=== PATIENT | male | born 2000 | race Caucasian/White ===

== ENCOUNTER 2021-03-05 17:18 | Emergency (ER) | payer OTHER, SELFPAY ==
[2021-03-05 17:31] VITALS: BP 130/77; PULSE 97; RESP 16; TEMP 37.1; O2SAT 100
--- NOTE | 2021-03-05 17:34 | ED.NAVMDI ---
HPI - Nausea/Vomiting/Diarrhea General Chief complaint: Nausea/Vomiting/Diarrhea Stated complaint: fatigue nausea Time Seen by Provider: 03/05/21 17:25 Source: patient and RN notes reviewed History of Present Illness HPI Narrative: Patient is a 20-year-old male who presents the urgent care with complaints of abdominal cramping, nausea, vomiting, diarrhea. Patient states is been ongoing for approximately 1 week and patient states it has improved over the last 2 days. Patient states he vomited once this morning and has been eating and drinking today. Patient states he has not tried a bland diet and does need to use the bathroom after every meal . Patient denies of any fevers. Patient has not taken anything [id number] for his symptoms. Denies of any gilberto history. States that he does have a Covid vaccine and denies any recent exposures. Denies of any upper respiratory complaints. No other acute complaints. No acute distress noted. Patient read the plan of care. Some parts of this dictation were generated by voice recognition software and may contain typographical and/or grammatical inaccuracies. Related Data Allergies Allergy/AdvReac Type Severity Reaction Status Date / Time No Known Allergies Allergy Verified 03/05/21 17:34 Review of Systems Review of Systems: CONSTITUTIONAL: Denies fever, chills, or sweats. EYES: Denies visual changes, redness, or discharge. ENT: Denies rhinorrhea, congestion, sore throat, or otalgia. CARDIOVASCULAR: Denies chest pain, palpitations, or edema. RESPIRATORY: Denies cough or dyspnea. GASTROINTESTINAL: Reports of intermittent abdominal cramping, nausea, vomiting, diarrhea GENITOURINARY: Denies dysuria or hematuria. SKIN: Denies rash or itching. MUSCULOSKELETAL: Denies back pain, joint pain, or myalgia. NEUROLOGIC: Denies headache, numbness, or weakness. All other systems reviewed are negative, except as documented in HPI. PMFSH Comments At the time of my signature, I reviewed and agree with the nursing past medical, surgical, social, and family history. There is no relevant family history pertinent to the patient complaint. Exam Narrative: GENERAL: This is a well-nourished, well-developed patient, in no apparent distress. HEAD: normocephalic, atraumatic. EYES: PERRL. Sclera clear/white. Vision is grossly intact. EARS: External ears normal NOSE: External nose normal with no obvious nasal discharge, nares without redness, no rhinorrhea. THROAT: Mucous membranes moist NECK: Neck supple CARDIOVASCULAR: Regular rate and rhythm without murmurs, gallops, or rubs. RESPIRATORY: Clear to auscultation. Breath sounds equal bilaterally. No wheezes, rales, or rhonchi. GASTROINTESTINAL: Abdomen soft, mild diffuse tenderness, nondistended. Bowel sounds are active. No guarding. SKIN: warm, intact with no suspicious lesions or rash, good texture and turgor. NEURO: awake, alert, and oriented to person, place and time. There were no obvious focal neurologic abnormalities. EXTREMITIES: No clubbing, cyanosis, or edema. Course Vital Signs Vital signs: Vital Signs Temperature 100.2 F H 03/05/21 17:31 Pulse Rate 97 03/05/21 17:31 Respiratory Rate 16 03/05/21 17:31 Blood Pressure 130/77 03/05/21 17:31 Pulse Oximetry 100 03/05/21 17:31 Temperature 100.2 F H 03/05/21 17:31 Pulse Rate 97 03/05/21 17:31 Respiratory Rate 16 03/05/21 17:31 Blood Pressure 130/77 03/05/21 17:31 Pulse Oximetry 100 03/05/21 17:31 Reviewed MDM - Nausea/Vomiting/Diarrhea MDM Narrative Medical decision making narrative: Advised the patient to use the Zofran as needed for nausea and 10 to 15 minutes prior to eating. Increase your water intake and avoid dairy products, greasy/fried foods. May use Pepto-Bismol [id number] for symptom relief. If you develop any increase in symptoms associated with fever, persistent abdominal pain, persistent vomiting/diarrhea?go to the emergency room. Follow-u
== END 2021-03-05 17:50 | disposition home or self-care (01) ==
PROVIDERS: Emergency Provider Nurse Practitioner Family
DX: K52.9 Noninfective gastroenteritis and colitis, unspecified (principal)
CPT/HCPCS: 99213; G0463

== ENCOUNTER 2022-11-22 08:02 | Emergency (ER) | payer OTHER, SELFPAY ==
[2022-11-22 08:10] VITALS: BP 120/75; PULSE 128; RESP 20; TEMP 37.1; O2SAT 98
--- NOTE | 2022-11-22 08:21 | ED.URI ---
HPI - URI/Sore Throat General Chief Complaint: Upper Respiratory Infection Stated Complaint: throat / headache Time Seen by Provider: 11/22/22 08:21 Source: patient, RN notes reviewed and old records reviewed Mode of arrival: ambulatory Limitations: no limitations History of Present Illness HPI Narrative: 22-year-old male who presents to [facility] with complaints of headache and sore throat since yesterday morning and he has had a cough for over a week. Patient reports that he has had strep pharyngitis in the past usually gets it at least once per year. Patient reports that he has been taking DayQuil and NyQuil for his symptoms. Patient reports that he has had the sweats but is unsure if he has had a fever, states emesis X1 yesterday and he has felt some achiness. MD elicited complaint: cough, sore throat and other (headache) Pertinent past history: other (strep throat) Onset (ago): day(s) (day 2 of symptoms.) Able to tolerate fluids by mouth: Yes Treatments prior to arrival: other (DayQuil and NyQuil) Related Data Allergies Allergy/AdvReac Type Severity Reaction Status Date / Time No Known Allergies Allergy Verified 11/22/22 08:15 Review of Systems Review of Systems: CONSTITUTIONAL: Reports malaise, chills, sweats, unknown fever. EYES: Denies visual changes, redness, or discharge. ENT: Reports rhinorrhea, congestion, no sinus pain, no otalgia ,positive for sore throat. CARDIOVASCULAR: Denies chest pain, palpitations, or edema. RESPIRATORY: Reports cough.? Denies dyspnea. GASTROINTESTINAL: Denies abdominal pain, nausea, vomiting, diarrhea SKIN: Denies rash or itching. MUSCULOSKELETAL: some myalgia. NEUROLOGIC: reports headache. All systems reviewed & are unremarkable except as noted in HPI and below PMFSH Past Medical History Medical History (Updated 11/22/22 @ 08:44 by Maria Luisa Casillas NP) Strep throat Social History Social History (Updated 11/22/22 @ 08:36 by Maria Luisa Casillas NP) Smoking status: Never smoker Alcohol intake: current Alcohol use details: social Substance use type: does not use Living arrangements: with family Occupation/Education: student Gender identity (if verbalized by the patient): Male Comments At time of signature, agree with nursing past medical, surgical, social and family history. There is no relevant family history pertinent to the presenting complaint Exam Narrative: GENERAL: Well-appearing, well-nourished, and in no acute distress. HEAD: Normocephalic EYES: PERRLA, conjunctivae clear ENT: Nares clear, turbinates edematous and erythematous, clear discharge. Mucous membranes moist. TM pearly sherman with dull light reflex bilaterally; no tragal tenderness. Oropharynx erythematous without lesions. Tonsils red enlarged and without exudate, no drooling, no hoarseness, no trismus, uvula midline, some post nasal drainage. NECK: Supple. lymphadenopathy CHEST: Clear to auscultation, breath sounds equal. No wheezing, rhonchi, rales, or stridor. No respiratory distress, speaks in full sentences.cough noted SAO2 98% on room air HEART: Regular rate and rhythm. No murmur heard. SKIN: Warm, dry, no rash. NEURO: Alert and oriented x3. PSYCH: Normal mood and affect Course Course Emergency Course: Patient is aware of diagnosis, understands and agrees to treatment plan.? Anticipatory guidance given.? Patient agrees to follow-up as directed and is aware of reasons to seek care at the emergency department. Portions of this record may have been created with voice recognition software Level of Care: Express Care Visit Vital Signs Vital signs: Vital Signs Temperature 37.1 C 11/22/22 08:10 Pulse Rate 128 H 11/22/22 08:10 Respiratory Rate 20 11/22/22 08:10 Blood Pressure 120/75 11/22/22 08:10 Pulse Oximetry 98 11/22/22 08:10 Oxygen Delivery Room Air 11/22/22 08:10 Temperature 37.1 C 11/22/22 08:10 Pulse Rate 128
== END 2022-11-22 08:55 | disposition home or self-care (01) ==
PROVIDERS: Emergency Provider Registered Nurse
DX: J01.90 Acute sinusitis, unspecified (principal); Z20.822 Contact with and (suspected) exposure to COVID-19
CPT/HCPCS: 87081; 87426; 87880; 99213; C9803; G0463

== ENCOUNTER 2022-11-24 08:44 | Emergency (ER) | payer OTHER, SELFPAY ==
[2022-11-24 08:48] VITALS: BP 129/83; PULSE 96; RESP 16; TEMP 36.9; O2SAT 100
--- NOTE | 2022-11-24 09:07 | ED.URI ---
HPI - URI/Sore Throat General Chief Complaint: Upper Respiratory Infection Stated Complaint: Sore Throat Source: patient and RN notes reviewed History of Present Illness HPI Narrative: 22-year-old male presents to urgent care with complaints of a continued sore throat. Patient states this started on Monday. Patient was seen here on Monday this week and tested negative for strep and COVID at that time. Patient was placed on amoxicillin at that time. Patient reports having hot flashes. Denies any vomiting, diarrhea, chest pain, shortness of breath, ear pain, or the complaint. Patient states ibuprofen and Tylenol do not work for him so he hasn't taken any OTC meds for his symptoms. Patient states he also noted some bloody nasal drainage earlier. Related Data Allergies Allergy/AdvReac Type Severity Reaction Status Date / Time pantoprazole Allergy Hives Verified 11/24/22 09:05 Review of Systems Review of Systems: Pertinent positives and pertinent negatives per HPI. [facility] Past Medical History Medical History (Updated 11/24/22 @ 09:09 by Floresita Stevenson, GATO) Strep throat Social History Social History (Updated 11/22/22 @ 08:36 by Maria Luisa Casillas NP) Smoking status: Never smoker Alcohol intake: current Alcohol use details: social Substance use type: does not use Living arrangements: with family Occupation/Education: student Gender identity (if verbalized by the patient): Male Comments At the time of my signature, I reviewed and agree with the nursing past medical, surgical, social, and family history. There is no relevant family history pertinent to the patient complaint. Exam Narrative: GENERAL: This is a well-nourished, well-developed patient, in no apparent distress. HEAD: normocephalic, atraumatic. EYES: Sclera clear/white. Vision is grossly intact. EARS: External ears normal, auditory canals clear and without drainage, TMs normal without perforation. Hearing grossly intact. NOSE: External nose normal with no obvious nasal discharge, nares without redness, no rhinorrhea. THROAT: Mucous membranes moist, posterior pharynx erythemic. Bilateral tonsils 2+. No abscess is noted. No exudate. NECK: Neck supple, non-tender without lymphadenopathy, masses or thyromegaly. CARDIOVASCULAR: Regular rate and rhythm without murmurs, gallops, or rubs. RESPIRATORY: Clear to auscultation. Breath sounds equal bilaterally. No wheezes, rales, or rhonchi.GASTROINTESTINAL: Abdomen soft, non-tender, nondistended. Bowel sounds are active. No hepato-splenomegaly, or palpable masses. No guarding. SKIN: warm, intact with no suspicious lesions or rash, good texture and turgor. NEURO: awake, alert, and oriented to person, place and time. There were no obvious focal neurologic abnormalities. Course Course Level of Care: Express Care Visit Vital Signs Vital signs: Vital Signs Temperature 98.4 F 11/24/22 08:48 Pulse Rate 96 11/24/22 08:48 Respiratory Rate 16 11/24/22 08:48 Blood Pressure 129/83 11/24/22 08:48 Pulse Oximetry 100 11/24/22 08:48 Oxygen Delivery Room Air 11/24/22 08:48 Temperature 98.4 F 11/24/22 08:48 Pulse Rate 96 11/24/22 08:48 Respiratory Rate 16 11/24/22 08:48 Blood Pressure 129/83 11/24/22 08:48 Pulse Oximetry 100 11/24/22 08:48 Oxygen Delivery Room Air 11/24/22 08:48 reviewed. MDM - URI/Sore Throat MDM Narrative Medical decision making narrative: Viral illness may last between 7-21 days; antibiotics do not cure viral illness and are NOT recommended at this time. Also, recommend symptomatic treatment includes: rest, fluids, and increase humidity of the air at home. Recommend Acetaminophen as directed on the bottle to reduce fever, pain, headache. Please schedule a follow-up visit with your personal physician for further evaluation and treatment within 3-5days. If your symptoms persist, change or worsen significantly before you can contact your person
== END 2022-11-24 09:12 | disposition home or self-care (01) ==
PROVIDERS: Emergency Provider Nurse Practitioner Family
DX: J02.9 Acute pharyngitis, unspecified (principal)
CPT/HCPCS: 99211; 99213; G0463

== ENCOUNTER 2025-02-06 01:39 | Day surgery (SDC) | payer BC, SELFPAY ==
[2025-01-22 11:00] VITALS: BMI 31.6
--- OUTSIDE RECORDS SUMMARY | 2025-02-06 02:15 | XMS_ITS | Clinical Summary ---
Author Organization [facility] Address [address], [address] [address] Phone Care Team Providers Care Electrician Chief Name Role Phone Don Vasquez PRODUCTION OPERATIONS MANAGER, [employer] DEPARTMENT SUPERVISOR Primary Care Pr ovider Tammie Keating APRN, DATA TYPIST Unavailable [phone]- [phone] Royal Zayas MD Unavailable [phone] Dayana Zurita APRN, [employer] DEPARTMENT SUPERVISOR Unavailable Allergies Active Allergy Reactions Criticality Noted Date Comments Pantoprazole Rash,Other (see Comments) High 03/23/19 22 Sore throat Medications dicyclomine (BENTYL) 10 MG CapsuleIndicatio ns:Chronic abdominal pain Take 1 Capsule by mouth 3 times daily. 90 Capsule 3 Active famotidine (PEPCID) 40 MG TabletIndication s:Gastroesophage al reflux disease, unspecified whether esophagitis present Take 1 Tablet by mouth 2 times daily. 60 Tablet 2 3 Active ondansetron (ZOFRAN) 4 MG Tablet Take 1 Tablet by mouth every 8 hours as needed for Nausea - 2nd line. 15 Tablet 3 Active SUMAtriptan (IMITREX) 100 MG TabletIndication s:Chronic migraine without aura without status migrainosus, not intractable Take 1 Tablet by mouth daily as needed for Migraine. Use as directed. May repeat dose in 2 hours if headache recurs. 9 Tablet 3 5 Active Active Problems Problem Noted Date Diagnosed Date Pure hypercholesterolemia 08/02/2024 Migraine 12/09/2022 Chronic abdominal pain 12/09/2022 MDD (major depressive disorder) 06/29/2021 Eczema 10/07/2020 Encounters Date Type Department Care Team Description 11/25/2024 MyChart RX Renewal [facility] [place] [address] [place] [address] Don Vasquez, PRODUCTION OPERATIONS MANAGER, [employer] M[employer] DEPARTMENT SUPERVISOR Medication Renewal Declined from Last 3 Months Immunizations Immunization Administration Dates Next Due Covid-19, Mrna, Lnp-s, Pf, 3 0 Mcg/0.3 Ml Dose ([employer]) 09/23/2020,09/02/2020 DTAP VACCINE 10/13/2006, 3,04/22/2002,02/19,2001 HEP B/HIB Combined Vaccine 10/16/2002,02/19/2002 ,2001 Hepatitis A Vaccine, Pediatric/adolescent, 2 Dose Schedule 10/25/2016,10/23/2013 Human Papillomavirus (HPV) 9 -valent Vaccine 10/25/2016 Human Papillomavirus Vaccine (HPV), quadrivalent 10/23/2013 Inactivated Polio Vaccine 10/13/2006,05/2002,02/19/2002,12/11 Influenza Vaccine,unspecifie d Formulation 12/17/2002 MMR Vaccine 10/16/2002 MMRV 10/13/2006 Meningococcal Group B OMV 10/17/2019 Meningococcal MCV4O 05/26/2018 Meningococcal Vaccine 10/23/2013 Pneumococcal PCV, Unspecifie d Formulation 10/16/2002,04/22/2002,02/19/2002,12/11 TDAP Vaccine 10/23/2013 Varicella Vaccine Live 10/16/2002 Family History Medical History Relation Name Comments Cancer Maternal Grandfather Wallace Colon c ancer Diabetes Mother Madhavi Migraines Mother Madhavi Relation Name Status Comments Maternal Grandfather Wallace Mother Madhavi Alive Social History Tobacco Use Types Packs/Day Years Used Date Smoking Tobacco: Never Smokeless Tobacco: Never Tobacco Cessation:Counseling Given: No Alcohol Use Standard Drinks/Week Comments Not Currently 3 (1 standard drink = 0.6 oz pur e alcohol) [facility] Utilities Answer Date Recorded In the past 12 months has th e electric, gas, oil, or water company threatened to shut off services in your home? No 07/30/2024 Social Connection and Isolation Panel Answer Date Recorded In a typical week, how many times do you talk on the phone with family, friends, or neighbors? Never 07/30/2024 How often do you get together with friends or re latives? Never 07/30/2024 How often do you attend roman catholic or evangelical serv ices? Never 07/30/2024 Do you belong to any clubs o r organizations such as roman catholic groups, unions, fraternal or athletic groups, or school groups? No 07/30/2024 How often do you attend meet ings of the clubs or organizations you belong to? Never 07/30/2024 Are you , , di vorced, , never , or living with a partner? Never 07/30/2024 AUDIT-C Answer Date Recorded Q1: How often do you have a drink containing alcohol? Never 07/30/2024 Q2: How many drinks containi ng alcohol do you have on a typical day when you are drinking? Patient does not drink Q3: How often do you have si x or more drinks on one occasion? Never 07/30/2024 Overall Financial Resource Strain (CARDIA) Answe r Date Recorded How hard is it for you to pa y for the very basics like food, housing, medical care, and heating? Not hard at all 07/30/2024 PHQ-2 Answer Date Recorded Total Score - Questions 1-9 0 07/18 [facility] - Occupational Stress Questionnaire Answer Date Recorded Do you feel stress - tense, restless, nervous, or anxious, or unable to sleep at night because your mind is troubled all the time - these days? Not at all 07/30/2024 Exercise Vital Sign Answer Date Recorde d On average, how many days pe r week do you engage in moderate to strenuous exercise (like a brisk walk)? 4 days 07/30/2024 On average, how many minutes do you engage in exercise at this level? 40 min 07/30/2024 Hunger Vital Sign Answer Date Recorded Within the past 12 months, y ou worried that your food would run out before you got the money to buy more. Never true 07/31/19 25 Within the past 12 months, t he food you bought just didn't last and you didn't have money to get more. Never true 07/30/2024 PRAPARE - Transportation Answer Date Re corded In the past 12 months, has l ack of transportation kept you from medical appointments or from getting medications? No 07/18 In the past 12 months, has l ack of transportation kept you from meetings, work, or from getting things needed for daily living? No 07/30/2024 Housing Stability Vital Sign Answer Asif e Recorded In the last 12 months, was t here a time when you were not able to pay the mortgage or rent on time? Patient declined 06/14/19 24 In the last 12 months, how many places have you lived? 1 06/14/2023 In the last 12 months, was t here a time when you did not have a steady place to sleep or slept in a retirement (including now)? No 06/14/2023 Housing Stability Vital Sign Answer Asif e Recorded In the last 12 months, was t here a time when you were not able to pay the mortgage or rent on time? No 07/30/2024 Number of Times Moved in the Last Year Not on fi le 07/30/2024 At any time in the past 12 m [facility], were you homeless or living in a retirement (including now)? No 07/30/2024 Education Answer Date Recorded What is the highest level of school you have completed or the highest degree you have received? 12th grade 10/31/2022 Sexually Active Control Partners Comments Yes Male Condom Female Sex and Gender Information Value Date Recorded Sex Assigned at Not on file Legal Sex Male 9:31 PM CDT Gender Identity Not on file Sexual Orientation Not on file Last Filed Vital Signs Vital Sign Reading Time Taken Comments Blood Pressure 130/72 07/30/2024 8:27 AM CDT Pulse 75 07/30/2024 8:27 AM CDT Temperature 36.4 C (97.6 F) 07/30/2024 8:27 AM CDT Respiratory Rate 16 07/30/2024 8:27 AM CDT Oxygen Saturation 98% 07/30/2024 8:27 AM CDT Inhaled Oxygen Concentration - - Weight 101.2 kg (223 lb) 07/30/2024 8:27 AM CDT Height 177.8 cm (5' 10) 07/30/2024 8:27 AM CDT Body Mass Index 32 07/30/2024 8:27 AM CDT Plan of Treatment Health Maintenance Due Date Last Done Comments Hepatitis C Virus (HCV) Screening 2001 Meningococcal B Immunization (2 of 2 - Bexsero SCDM 2-dose series) 04/18/2020 10/17/2019 DTaP/Tdap/Td Immunization (7 - Td or Tdap) 10/24/2023 10/23/2013, 10/13/2006, 10/16/2002, Additional history exists Influenza Immunization (#1) 2024 12/17/2002 SARS-COV-2 Immunization (3 - season) 2024 09/23/2020, 09/02/2020 Respiratory Syncytial Virus (RSV) Immunization (Adult) (1 - 1-dose 75+ series) 2076 Hepatitis B Immunization Completed 003, 02/19/2002, 2001 Pneumococcal Immunization Combined Aged Out 10/16/2002, 04/22/2002, 02/19/2002, Additional history exists No longer eligible based on patient's age to complete this topic Measles Mumps Rubella (MMR) Immunization Discontinued 10/13/2006, 10/16/2002 Polio (IPV) Immunization Discontinued 007, 04/22/2002, 02/19/2002, Additional history exists Varicella Immunization Completed 10/13/2006, 2002 Hepatitis A Immunization Discontinued 10/25/2016, 08/2013 Human Papillomavirus (HPV) Immunization Completed 10/25/2016, 10/23/2013 Meningococcal Immunization (ACWY) Completed 05/26/2018, 10/23/2013 Rotavirus Immunization Aged Out No lo nger eligible based on patient's age to complete this topic Insurance MEDICAID [place] [facility] Care Teams Electrician Chief Relationship Specialty Start Date End Date Don Vasquez APRN, WALL MIRROR DEPARTMENT SUPERVISOR [address] [address] PCP - General Advanced Practice Nurse 10/07/20 Tammie Keating APRN, DATA TYPIST [address] [place] [address] Nurse Practitioner Advanced Practice Nurse 04/21/23 Royal Zayas MD [address] [place] [id number] Consulting Physician Neurology 09/12/22 Dayana Zurita APRN, [employer]IR[employer] DEPARTMENT SUPERVISOR [address] [place] [address] Nurse Practitioner Advanced Practice Nurse 08/08/22
[2025-02-06 09:34] VITALS: BP 119/76; PULSE 114; RESP 18; TEMP 36.2; O2SAT 100
[2025-02-06] MEDS: LACTATED RINGERS 1,000 ML 150 ML IV CONT (09:43)
--- NOTE | 2025-02-06 09:54 | WPDANESEPPF ---
Anes - Initial Pre Proc Eval Procedure: Operation Date: 02/06/25 11:00 Proposed Procedures p Diagnostic Colonoscopy - Felice Ricketts MD Date/Time: 02/06/25 09:54 Surgeon: Felice Ricketts MD Pre Op Diagnosis: Unspecified abdominal pain Patient Data Age: 24 Gender: M Height: 1.78 m Weight: 100.7 kg Last Vital Signs Temp 36.2 C L 02/06/25 09:34 Pulse 114 H 02/06/25 09:34 Resp 18 02/06/25 09:34 BP 119/76 02/06/25 09:34 Pulse Ox 100 02/06/25 09:34 O2 Del Method Room Air 02/06/25 09:34 Allergies Allergy/AdvReac Type Severity Reaction Status Date / Time pantoprazole Allergy Hives Verified 02/06/25 09:33 Home Medications ?Medication ?Instructions ?Recorded ?Confirmed ?Type famotidine 20 mg tablet 20 mg PO DAILY 11/24/22 02/06/25 History rizatriptan 10 mg tablet 10 mg PO PRN Headaches 11/24/22 01/22/25 History topiramate 100 mg tablet 100 mg PO DAILY 11/24/22 01/22/25 History amitriptyline 25 mg tablet 50 mg (2 x 25 mg) PO QHS 1 month 01/01/25 02/06/25 Rx #60 tabs Patient hx anesthesia problems: none Family hx anesthesia problems: none Results Review: All pre-operative results and documents have been reviewed as part of the pre-operative evaluation. [facility] Past Medical History Medical History Abdominal pain Family history of Crohn's disease Family history of ulcerative colitis GERD (gastroesophageal reflux disease) Diarrhea Chronic bilateral lower abdominal pain Strep throat Social History Social History Smoking status: Never smoker Alcohol intake: current Alcohol use details: social Substance use type: does not use Living arrangements: with family Occupation/Education: student Gender identity (if verbalized by the patient): Male Spiritual care concerns: No Anes - Eval Final PreProcedure Day of Procedure 02/06/25 09:54 Patient weight: obese Heart: regular rate and rhythm Lungs: clear to auscultation Airway: Mallampati scale class II Neurological: alert and oriented Last oral intake: >/= 8 hours ASA classification: II Emergent: no Anesthetic plan: proceed Anesthesia type and monitoring: general GIVS and standard monitoring Results Review: All pre-operative results and documents have been reviewed as part of the pre-operative evaluation. Informed Consent: The patient's anesthetic plan and its attendant risks and benefits were discussed with the patient/family/POA. Questions were solicited and answers provided to the satisfaction of the patient/family/POA.
--- NOTE | 2025-02-06 09:55 | PM.HPGS ---
History of Present Illness History of Present Illness Consent: Risks, benefits, and alternatives have been discussed and questions answered. Patient agrees to proceed with procedure. Chief complaint: Unspecified abdominal pain Narrative: Adrian Hudson is a 24 year old male here for first colonoscopy, h/o intermittent abdominal pain with diarrhea, improved with elavil Review of Systems Review of Systems: All systems reviewed & are unremarkable except as noted in HPI and below PMFSH Past Medical History Medical History (Updated 02/06/25 @ 09:56 by Felice Ricketts MD) IBS (irritable bowel syndrome) Abdominal pain Family history of Crohn's disease Family history of ulcerative colitis GERD (gastroesophageal reflux disease) Diarrhea Chronic bilateral lower abdominal pain Strep throat Social History Social History Smoking status: Never smoker Alcohol intake: current Alcohol use details: social Substance use type: does not use Living arrangements: with family Occupation/Education: student Gender identity (if verbalized by the patient): Male Spiritual care concerns: No Meds Home Medications and Allergies Home Medications ?Medication ?Instructions ?Recorded ?Confirmed ?Type famotidine 20 mg tablet 20 mg PO DAILY 11/24/22 02/06/25 History rizatriptan 10 mg tablet 10 mg PO PRN Headaches 11/24/22 01/22/25 History topiramate 100 mg tablet 100 mg PO DAILY 11/24/22 01/22/25 History amitriptyline 25 mg tablet 50 mg (2 x 25 mg) PO QHS 1 month 01/01/25 02/06/25 Rx #60 tabs Allergies Allergy/AdvReac Type Severity Reaction Status Date / Time pantoprazole Allergy Hives Verified 02/06/25 09:33 Vital Signs Vital Signs - 24 hr 02/06/25 09:34 Temperature 97.2 F L Pulse Rate 114 H Respiratory Rate 18 Blood Pressure 119/76 Pulse Oximetry 100 Oxygen Delivery Room Air Exam Const: General: comfortable and no acute distress HENMT: Face/Nose/Sinus: Normal nares present Eyes: General: appearance normal, both eyes and all related structures Resp: Auscultation: clear to auscultation bilaterally Cardio: Rate: regular rate Rhythm: regular rhythm GI: Inspection: non-distended GI Palp: Yes Soft to palpation Skin: General skin exam: normal color Extrem: General: normal to inspection Psych: Mental Status: mental status grossly normal Assessment and Plan Assessment and plan (1) IBS (irritable bowel syndrome): Code(s): K58.9 - Irritable bowel syndrome, unspecified Status: Acute Assessment and Plan: colonoscopy
--- NOTE | 2025-02-06 10:03 | S_PTH ---
PATIENT: Adrian Hudson LOC: [facility] [place]#:[id number] AGE/SX: 24/M ROOM: RE02/06/[address]: Felice Ricketts MD : [id number] BED: DIS: 02/06/2025 SPEC #: [id number] RECD: 02/06/25 11:33 STATUS: KALEIGH RELian #: [id number] LUIS E: 02/06/25 10:[address]: Felice Ricketts DEPT: [facility] Surgical RECD BY: Sherine Fabian Tissues: A - Colon Biopsy Procedures: Hematoxylin and Eosin Stain Gross and Microscopic Level 4
[2025-02-06 10:09] VITALS: BP 109/70; PULSE 94; RESP 16; O2SAT 96
[2025-02-06 10:19] VITALS: BP 110/74; PULSE 90; RESP 19; O2SAT 96
[2025-02-06 10:29] VITALS: BP 111/76; PULSE 90; RESP 17; O2SAT 98
== END 2025-02-06 10:35 | disposition home or self-care (01) ==
PROVIDERS: Referring Provider Nurse Practitioner Family; Visit Provider Internal Medicine Gastroenterology
PROC: 0DJD8ZZ Inspection of Lower Intestinal Tract, Via Natural or Artificial Opening Endoscopic (ICD-10-PCS; CPT 45378; principal; 2025-02-06 11:00)
DX: K58.9 Irritable bowel syndrome, unspecified (principal); K21.9 Gastro-esophageal reflux disease without esophagitis; G89.29 Other chronic pain; R10.32 Left lower quadrant pain; R10.31 Right lower quadrant pain; E66.9 Obesity, unspecified; Z68.31 Body mass index [BMI] 31.0-31.9, adult
CPT/HCPCS: 45380; 88305; J2003; J2704; J7120